=== PATIENT | male | born 1965 | race African-American/Black ===

== ENCOUNTER 2016-11-30 01:20 | Emergency (ER) | payer MEDICAID ==
[~2016-11-30] VITALS: Ht 175.3 cm; Wt 95.0 kg
[~2016-11-30 01:20] MED LIST: INSU100V3
[2016-11-30 05:01] VITALS: BP 123/87
== END 2016-11-30 05:03 | disposition home or self-care (01) ==
LOC: ER 01:28
DX: T51.0X1A Toxic effect of ethanol, accidental (unintentional), initial encounter (principal); G92 Toxic encephalopathy; F14.10 Cocaine abuse, uncomplicated; X58.XXXA Exposure to other specified factors, initial encounter; Y93.89 Activity, other specified; Y92.89 Other specified places as the place of occurrence of the external cause; Y99.8 Other external cause status
CPT/HCPCS: 99283; Z7610

== ENCOUNTER 2016-12-01 01:39 | Emergency (ER) | payer MEDICAID ==
[~2016-12-01] VITALS: Ht 172.7 cm; Wt 100.0 kg
[2016-12-01] MEDS ORDERED: KETOROLAC 60MG/2ML VIAL IM ONE (02:30)
[2016-12-01 04:45] VITALS: BP 129/81
== END 2016-12-01 05:00 | disposition home or self-care (01) ==
LOC: ER 01:39
DX: S86.911A Strain of unspecified muscle(s) and tendon(s) at lower leg level, right leg, initial encounter (principal); F14.10 Cocaine abuse, uncomplicated; F17.200 Nicotine dependence, unspecified, uncomplicated; X58.XXXA Exposure to other specified factors, initial encounter; Y93.89 Activity, other specified; Y92.89 Other specified places as the place of occurrence of the external cause; Y99.8 Other external cause status
CPT/HCPCS: 96372; 99283; J1885

== ENCOUNTER 2023-10-17 18:47 | Emergency (ER) | payer MEDICAID ==
[~2023-10-17] VITALS: Ht 180.3 cm; Wt 136.0 kg
[2023-10-17 18:55] VITALS: O2SAT 97
[2023-10-17 22:00] VITALS: BP 158/68; PULSE 108; RESP 17; TEMP 98.4
== END 2023-10-18 00:03 ==
LOC: ER 18:47
DX: F10.129 Alcohol abuse with intoxication, unspecified (principal); F14.10 Cocaine abuse, uncomplicated; Y90.0 Blood alcohol level of less than 20 mg/100 ml
CPT/HCPCS: 99283

== ENCOUNTER 2023-10-21 06:02 | Emergency (ER) | payer MEDICAID ==
[~2023-10-21] VITALS: Ht 180.3 cm; Wt 114.0 kg
[2023-10-21 06:09] VITALS: BP 142/91; PULSE 106; RESP 16; TEMP 97.9; O2SAT 94
== END 2023-10-21 07:56 | disposition left against medical advice (07) ==
LOC: ER 06:19
DX: M79.89 Other specified soft tissue disorders (principal); Z53.21 Procedure and treatment not carried out due to patient leaving prior to being seen by health care provider
CPT/HCPCS: 99281